=== PATIENT | male | born 1985 | race African-American/Black ===

== ENCOUNTER 2019-01-07 12:07 | Emergency (ER) | payer OTHER ==
[2019-01-07 12:29] VITALS: BP 150/80; PULSE 68; TEMP 99; BMI 35.9
[2019-01-07] MEDS ORDERED: ACETAMINOPHEN 500 MG TABLET (FP) PO ONE (12:33)
[2019-01-07] MEDS ORDERED: ACETAMINOPHEN 325 MG TABLET (FP) ONE (12:37)
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
== END 2019-01-07 12:56 | disposition home or self-care (01) ==
LOC: JERFT 12:07
DX: S13.4XXA Sprain of ligaments of cervical spine, initial encounter (principal); S39.012A Strain of muscle, fascia and tendon of lower back, initial encounter; V43.52XA Car driver injured in collision with other type car in traffic accident, initial encounter; Y92.414 Local residential or business street as the place of occurrence of the external cause; Y93.89 Activity, other specified; Y99.8 Other external cause status; Z87.01 Personal history of pneumonia (recurrent); Z86.711 Personal history of pulmonary embolism; Z79.01 Long term (current) use of anticoagulants
CPT/HCPCS: 99281-25